=== PATIENT | male | born 1975 | race Caucasian/White ===

== ENCOUNTER 2020-06-26 12:19 | Emergency (ER) | payer MEDICAID ==
[~2020-06-26] VITALS: Ht 190.5 cm; Wt 97.7 kg
[~2020-06-26 12:19] MED LIST: COLC0.6T72 PO
[2020-06-26 12:33] VITALS: BP 177/116
[2020-06-26] MEDS ORDERED: predniSONE 20 mg tablet PO ONE (13:05)
[2020-06-26] MEDS ORDERED: PRED20TA PO (13:22)
== END 2020-06-26 13:31 | disposition home or self-care (01) ==
LOC: ER 12:20
DX: M10.9 Gout, unspecified (principal); M79.644 Pain in right finger(s); Z98.890 Other specified postprocedural states; Z60.2 Problems related to living alone; Z79.899 Other long term (current) drug therapy
CPT/HCPCS: 71045; 99283; J7512

== ENCOUNTER 2020-12-25 16:17 | Emergency (ER) | payer MEDICAID ==
[~2020-12-25] VITALS: Ht 190.5 cm; Wt 100.0 kg
[2020-12-25 16:37] VITALS: BP 140/90
[2020-12-25] MEDS ORDERED: HYDR-3965 PO (18:14)
== END 2020-12-25 18:23 | disposition home or self-care (01) ==
LOC: ER 16:18
DX: M25.561 Pain in right knee (principal); M10.9 Gout, unspecified; Z98.890 Other specified postprocedural states; Z60.2 Problems related to living alone; Z79.899 Other long term (current) drug therapy
CPT/HCPCS: 29505; 73564; 99283

== ENCOUNTER 2021-10-23 11:55 | Emergency (ER) | payer MEDICAID ==
[~2021-10-23] VITALS: Ht 190.5 cm; Wt 95.0 kg
[~2021-10-23 11:55] MED LIST changes: +IBUP-1986 PO
[2021-10-23 12:01] VITALS: BP 167/126
[2021-10-23 15:09] LABS: BASOPHILS # (AUTO) 0.1 X10'3 (0-0.2); BASOPHILS % (AUTO) 1.2 % (0-1); EOSINOPHILS % (AUTO) 0.6 % (0-6); HEMATOCRIT 36.6 % (42.0-52.0); LYMPHOCYTES # (AUTO) 0.8 X10'3 (1.1-4.8); LYMPHOCYTES % (AUTO) 14.7 % (21-51); MEAN CORPUSCULAR HEMOGLOBIN 28.1 PG (27.0-31.0); MEAN CORPUSCULAR HGB CONC 32.9 g/dL (33.0-36.5); MEAN CORPUSCULAR VOLUME 85.3 FL (78-98); MEAN PLATELET VOLUME 6.6 FL (7.4-10.4); MONOCYTES # (AUTO) 0.4 X10'3 (0-0.9); MONOCYTES % (AUTO) 7.2 % (2-12); NEUTROPHILS % (AUTO) 76.3 % (42-75); PLATELET COUNT 279 X10'3 (140-440); RED BLOOD COUNT 4.29 X10'6 (4.70-6.10); RED CELL DISTRIBUTION WIDTH 16.1 % (11.5-14.5); WHITE BLOOD COUNT 5.3 X10'3 (4.5-11.0)
[2021-10-23] MEDS ORDERED: traMADol 50MG tablet PO ONE (15:30)
[2021-10-23 15:31] LABS: ALANINE AMINOTRANSFERASE 11 U/L (12-78); ALBUMIN/GLOBULIN RATIO 0.7 (1.1-1.5); ALKALINE PHOSPHATASE 119 IU/L (46-116); ANION GAP 6 (8-16); ASPARTATE AMINO TRANSFERASE 15 U/L (10-37); BILIRUBIN,TOTAL 0.5 MG/DL (0.1-1.0); BLOOD UREA NITROGEN 11 MG/DL (7-18); BUN/CREATININE RATIO 7.9 (5.4-32.0); C-REACTIVE PROTEIN 5.22 MG/DL (0.0-0.5); CALCIUM 8.9 MG/DL (8.5-10.1); CHLORIDE 101 MMOL/L (99-107); GLUCOSE 104 MG/DL (70-104); POTASSIUM 3.8 MMOL/L (3.5-5.1); SODIUM 137 MMOL/L (135-145); TOTAL CARBON DIOXIDE 30.2 MMOL/L (24-32); TOTAL PROTEIN 7.5 G/DL (6.4-8.2); eGFR 55 ML/MIN
[2021-10-23] MEDS ORDERED: ketorolac trometh. 30mg/ml inj. IV ONE (15:45)
[2021-10-23] MEDS ORDERED: ketorolac trometh. 30mg/ml inj. IM ONE (16:00)
[2021-10-23] MEDS ORDERED: dexamethasone sod phosphate 10mg/ml inj IM STA (17:09)
[2021-10-23] MEDS ORDERED: COLC1TAB2 PO (17:23)
== END 2021-10-23 17:38 | disposition home or self-care (01) ==
LOC: ER 11:56
DX: M10.9 Gout, unspecified (principal); Z79.899 Other long term (current) drug therapy
CPT/HCPCS: 36415; 80053; 84550; 85025; 85651; 86140; 96372; 99284; J1100; J1885

== ENCOUNTER 2022-11-10 01:36 | Emergency (ER) | payer MEDICAID ==
[~2022-11-10] VITALS: Ht 91.4 cm; Wt 95.4 kg
[~2022-11-10 01:36] MED LIST changes: -COLC0.6T72 PO; +LISI10TA27 PO
[2022-11-10 01:47] VITALS: BP 147/100
== END 2022-11-10 03:33 | disposition home or self-care (01) ==
LOC: ER 01:36
DX: R55 Syncope and collapse (principal); L72.0 Epidermal cyst; D17.9 Benign lipomatous neoplasm, unspecified; I10 Essential (primary) hypertension; Z79.1 Long term (current) use of non-steroidal anti-inflammatories (NSAID); Z79.899 Other long term (current) drug therapy
CPT/HCPCS: 93005; 99283

== ENCOUNTER 2023-01-16 17:43 | Emergency (ER) | payer MEDICAID | END 2023-01-16 18:15 | disposition left against medical advice (07) | LOC: ER 17:43 | DX: M79.603 Pain in arm, unspecified (principal); Z53.21 Procedure and treatment not carried out due to patient leaving prior to being seen by health care provider ==